=== PATIENT | male | born 1985 | race Caucasian/White ===

== ENCOUNTER → 2023-12-07 13:31 | Outpatient (REF) | payer MEDICARE, MEDICAID, SELFPAY | LOC: MRI 13:31 | PROVIDERS: ATTENDING PHYSICIAN Orthopaedic Surgery; FAMILY PHYSICIAN Physician Assistant | DX: M25.811 Other specified joint disorders, right shoulder (principal) | CPT/HCPCS: 23350; 73040; 73222 ==

== ENCOUNTER 2024-01-13 18:33 | Emergency (ER) | payer MEDICARE, MEDICAID, SELFPAY ==
[2024-01-13 18:36] VITALS: BMI 26.7
[2024-01-13 18:41] VITALS: BP 137/93
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
== END 2024-01-13 20:20 | disposition home or self-care (01) ==
LOC: EMR 18:33
PROVIDERS: EMERGENCY PHYSICIAN Emergency Medicine; FAMILY PHYSICIAN Physician Assistant
DX: M25.512 Pain in left shoulder (principal); W19.XXXA Unspecified fall, initial encounter; I38 Endocarditis, valve unspecified; F41.9 Anxiety disorder, unspecified; Z95.2 Presence of prosthetic heart valve; Z98.2 Presence of cerebrospinal fluid drainage device
CPT/HCPCS: 99283; 73030

== ENCOUNTER → 2024-07-04 15:43 | Outpatient (REF) | payer MEDICARE, MEDICAID, SELFPAY | LOC: RCS 15:43 | PROVIDERS: ATTENDING PHYSICIAN Internal Medicine Cardiovascular Disease; FAMILY PHYSICIAN Physician Assistant | DX: Z95.2 Presence of prosthetic heart valve (principal); I10 Essential (primary) hypertension | CPT/HCPCS: 93306 ==

== ENCOUNTER 2024-10-04 06:30 | Emergency (ER) | payer MEDICARE, MEDICAID, SELFPAY ==
[2024-10-04] VITALS (9 sets, daily range): BP systolic 115–140; BP diastolic 74–91
--- NOTE | 2024-10-04 07:13 | ED.GENMED ---
History of Present Illness
General
Chief Complaint: Chest Pain
Source: patient and care coordinator
Time Seen by Provider: 10/04/24 06:58
History of Present Illness
History of Present Illness:
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 Symptoms
began 2-3 days ago with URI symptoms and vomiting. He was seen at urgent care 2 days ago and was diagnosed with a viral illness. He seemed to be doing well yesterday and started having vomiting again last night. He has been complaining of chest
pain and 'not feeling right' so he was brought to the ED for evaluation. He denies any fevers, headache, abdominal pain, diarrhea. Of note, patient's medications have been changed recently. He was taken off of amitriptyline about 2 weeks ago. He
was started on baclofen and tramadol this week. He finished a course of prednisone 3 days ago which was prescribed by his pain management doctor.
Past History
Past History
ED Past Medical History: Valvular disease, Psychiatric (Anxiety) and Other (Hydrocephalies, MR)
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 Laryngotomy tubes)
Social History
Tobacco: Non-smoker
Alcohol: None
Personal: Single
Living: with family
Employment: Employed
Phy Exam
Physical Exam
Physical Exam:
Actively retching on exam
General Physical Exam
General Presentation: mild distress
General Skin: warm and dry
General Habitus: normal
General Mental: alert
ENT Exam
ENT Exam: normocephalic
Cardiovascular Exam
Cardiovascular Exam: regular rate/rhythm and other (Mechanical click)
Pulmonary Exam
Pulmonary Exam: lungs clear, no respiratory distress, no rales, no crackles, no rhonchi and other (Patient winces on palpation of the sternal region)
Gastrointestinal Exam
Gastrointestinal Exam: non tender, soft and non distended
Neurological Exam
Neurological Exam: alert
[place] Coma Scale
Eye Opening: Spontaneous
Verbal Response: Oriented
Motor Response: Obeys Commands
GCS Total Score: 15
Skin Exam
Skin Exam: normal color and warm/dry
Scores
Heart Score for Chest Pain Patients
STEMI patient?: No
History: Slightly or Non-Suspicious
ECG: Nonspecific Repolarization
Age: </= 45 years
Risk Factors: 1 or 2 Risk Factors
Troponin: </= Normal Limit
Heart Score for Chest Pain Patients: 2
Heart Score Risk: 2.5% MACE over next 6 weeks
Course
Orders/Labs/Results
Orders:
Orders
10/04/24 06:42
Electrocardiogram (*1) Urgent
Reason for Study: Other
Other Reason for Exam: Respiratory Distress
Cardiac Monitoring- Treatment ONCE
EKG- Treatment ONCE
IV Insert/Care/Rem.- Treatment PRN
CR Chest - 2 Views Urgent
Comment:
Reason For Exam: respiratory distress
O2 Therapy [RESP] Urgent
Titrate/Wean O2 to maintain O2 sat greater than (%): 93
Special Instructions: TO MAINTAIN CONTINUOUS O2 SATS >/= 93%
Pulse Ox/cont/shift [RESP] Urgent
Quantity: 1
Special Instructions: continuous pulse ox
10/04/24 07:11
Add On- LAB Urgent
Tests Added?: lipase
Cardiac Monitoring- Treatment ONCE
Ondansetron Injectable [Zofran] 4 mg IV NOW STA
10/04/24 07:12
0.9% Sodium Chloride 1000 ml [Nss] 1,000 ml IV BOLUS
10/04/24 07:18
Add On- LAB Urgent
Tests Added?: magnesium
10/04/24 07:19
COVID-19 Antigen Urgent
Source: Nasal Swab
Complete Blood Count/With Diff Urgent
Comprehensive Metabolic Panel Urgent
Lipase Urgent
Comment: ADD ON
Magnesium Urgent
Comment: ADD ON
NT-proBNP Urgent
Prothrombin Time Urgent
Troponin I Urgent
Influenza A+B Rapid Molecular Urgent
ANJELICA Source: Nasal Swab
Specimen Description:
10/04/24 08:18
Diphenhydramine [Benadryl] 25 mg IV NOW STA
Prochlorperazine [Compazine] 10 mg IV NOW STA
10/04/24 08:19
Famotidine [Pepcid] 20 mg IV NOW STA
10/04/24 08:22
CT Abd/pelvis W Iv Cont Urgent
Comment:
Reason For Exam: generalized abd pain, vomiting
10/04/24 10:19
Electrocardiogram (*1) Urgent
Reason for Study: Chest Pain
EKG- Treatment ONCE
10/04/24 10:36
Troponin I Urgent
10/04/24 10:39
Acetaminophen [Tylenol] 1,000 mg PO NOW STA
10/04/24 11:[address] Non Medication Order As Directed
Physician Order: PO challenge
Abnormal Lab Results
10/04/24
07:19
MPV 12.0 H fL
(7.4-10.4)
Absolute Lymphs (auto) 0.7 L 10^3/uL
(1.2-3.4)
Neutrophils % 78.9 H %
(42.2-75.2)
Lymphocytes % 10.4 L %
(20.5-51.1)
PT 20.8 H Sec
(11.4-14.6)
Glucose 122 H mg/dl
(70-99)
Total Bilirubin 1.7 H mg/dl
(0.2-1.3)
10/04/24 07:19
10/04/24 07:19
Vital Signs
Initial and Last Documented VS:
Initial Vital Signs
Temp Pulse Resp BP Pulse Ox
98.2 F 63 20 140/91 99
10/04/24 06:43 10/04/24 06:43 10/04/24 06:43 10/04/24 06:43 10/04/24 06:43
Last Documented Vital Signs
Temp Pulse Resp BP Pulse Ox
98.2 F 67 17 128/82 98
10/04/24 06:43 10/04/24 12:15 10/04/24 12:15 10/04/24 11:00 10/04/24 12:15
MDM/Problems Addressed
Differential Diagnosis Includes:
38yoM here with vomiting since last night. Also had vomiting a few days ago. C/o chest pain. Recently started on Tramadol and baclofen for chronic neck pain. Hx of mechanical heart valve on Coumadin. VSS. He is actively retching on exam. There is
reproducible chest wall tenderness. Differential diagnosis includes but is not limited to: Gastroenteritis, medication side effect, costochondritis, gastritis, dehydration, ACS
Initial plan: Check cardiac labs, INR, magnesium, EKG, viral testing, and chest x-ray. IV Zofran and fluid bolus.
*EKG
Interpreted by ED Provider?: Yes
EKG Intrepretation Date: 10/04/24
Heart Rate: 55
Rate: bradycardiac
Rhythm: sinus
[place]: normal axis
Interval: normal interval
QRS Pattern: normal QRS
Ischemia: non-specific ST changes
*Critical Care Note
Total Time (30-74mins, 75-104mins- exclusive of procedures): Not Applicable
Update Note
Update Note:
EKG shows sinus bradycardia with nonspecific ST/T wave changes. Troponin within normal limits. INR subtherapeutic at 1.77. Remainder of labs unremarkable including normal white count, electrolytes, and renal function. Chest x-ray clear. Patient
with persistent symptoms after Zofran and Compazine/Benadryl ordered. Patient feeling significantly proved after this and had no further episodes of vomiting. CT abdomen added which is negative for acute findings. Patient able to tolerate p.o.
fluids. Repeat EKG and troponin unchanged. Patient is stable for discharge. Suspect symptoms may be related to recent medication changes. Caregiver advised to discuss this with his PCP. Prescription given for Zofran and supportive care
reviewed. ED return precautions discussed. Caregiver and patient in agreement with plan and he was discharged in stable condition.
ED Attending Note
-
Portions of this chart may have been created with voice recognition software.� Occasional wrong word or��sound alike� substitutions may have occurred due to the inherent limitations of voice recognition software.
Discharge Plan
Departure
Patient Disposition: Home (Routine Discharge)
Date of Disposition: 10/04/24
Time of Disposition: 12:19
Patient with high blood pressure during this ER visit?: No
Discharge Problem:
Nausea and vomiting, Chest pain, Subtherapeutic international normalized ratio (INR)
Instructions: Nausea and vomiting in adults - ED discharge instructions
Prescriptions:
New
ondansetron 4 mg tablet,disintegrating
4 mg PO Q6H PRN (Reason: nausea and vomiting) Qty: 20 0RF
No Action
atenolol 25 MG tablet
25 mg PO QPM
warfarin 10 mg Tablet
13.5 mg PO QPM
alum-mag hydroxide-simeth 200-200-20 mg/5 mL Suspension
10 ml PO DAILYPRN PRN (Reason: gerd)
pantoprazole [Protonix] 40 mg tablet,delayed release (DR/EC)
40 mg PO DAILY Qty: 30 0RF
Referrals:
Mariposa Xie PA [Family Provider] -
Activity Restrictions/Additional Instructions:
Take Zofran as needed for nausea. Drink plenty of fluids and eat a bland diet (bananas, rice, applesauce, toast).
Please call your Coumadin clinic today as your INR was low at 1.77.
Please follow-up with your family doctor on Sunday. Return to the ER with any new or worsening symptoms.
Interventions
Interventions:
*Risk Screen - Suicide Last Done: 10/04/24 06:43
*General Assessment Last Done: 10/04/24 06:43
*Neglect/Abuse Screening Last Done: 10/04/24 06:43
*ED- Fall Risk Assessment Last Done: 10/04/24 06:43
*ED COVID-19 Vaccine History Last Done: 10/04/24 06:43
*Nursing Disposition Last Done: 10/04/24 12:41
ED- Cardiac Assessment Last Done: 10/04/24 07:51
Discharge Date and Time
Discharge Date/Time: 10/04/24 12:42
Print Language: PASHTO
[2024-10-04] MEDS: ZOFRAN 4 MG IV (07:20)
[2024-10-04] MEDS: NSS 1000 IV (07:21)
[2024-10-04 07:53] LABS: % Basophils 0.3 % (0-2); % Eosinophils 0.8 % (0-6); % Immature Granulocytes 0.5 % (0-0.5); % Lymphocytes 10.4 % (20.5-51.1); % Monocytes 9.1 % (1.7-9.3); % Neutrophils 78.9 % (42.2-75.2); Absolute Eosinophils 0.1 10^3/uL (0-0.7); Absolute Lymphocytes 0.7 10^3/uL (1.2-3.4); Absolute Monocytes 0.6 10^3/uL (0.1-0.6); Absolute Neutrophils 5.1 10^3/uL (1.4-6.5); Hematocrit 43.8 % (39.0-52.0); Hemoglobin 15.6 g/dL (13.0-18.0); Mean Corp Hgb Conc. 35.6 g/dL (33.0-37.0); Mean Corpuscular Hgb 28.9 pg (27.0-31.0); Mean Corpuscular Volume 81.3 fL (80.0-94.0); Nucleated Red Blood Cells % 0 % (-); Platelet Count 133 10^3/uL (130-400); Red Blood Cell Count 5.39 10^6/uL (4.70-6.10); Red Cell Dist. Width 14.5 % (11.5-14.5); White Blood Cell Count 6.5 10^3/uL (4.8-10.8)
[2024-10-04 07:57] LABS: ALT (SGPT) 34 U/L (0-50); AST (SGOT) 26 U/L (17-59); Albumin 4.7 g/dl (3.5-5.0); Alkaline Phosphatase 52 U/L (38-126); Blood Urea Nitrogen 17 mg/dl (9-20); Calcium 9.9 mg/dl (8.4-10.2); Carbon Dioxide 23 mmol/L (22-30); Chloride 102 mmol/L (98-107); Glucose 122 mg/dl (70-99); INR 1.77; PT 20.8 Sec (11.4-14.6); Potassium 4.4 mmol/L (3.5-5.1); Sodium 139 mmol/L (135-145); Total Bilirubin 1.7 mg/dl (0.2-1.3); Total Protein 7.2 g/dl (6.3-8.2); eGFR > 60.00
[2024-10-04 08:02] LABS: COVID-19 Antigen Negative (Negative)
[2024-10-04 08:09] LABS: NT-proBNP 146 pg/ml; Troponin I < 0.012 ng/ml
[2024-10-04] MEDS: COMPAZINE 10 MG IV (08:25)
[2024-10-04] MEDS: BENADRYL 25 MG IV (08:25)
[2024-10-04] MEDS: PEPCID 20 MG IV (08:26)
[2024-10-04 10:32] LABS: Lipase 92 U/L (23-300); Magnesium 1.8 mg/dl (1.6-2.3)
[2024-10-04] MEDS: TYLENOL 1000 MG PO (10:43)
[2024-10-04 11:13] LABS: Troponin I < 0.012 ng/ml
== END 2024-10-04 12:42 | disposition home or self-care (01) ==
LOC: EMR 06:30
PROVIDERS: Physician Assistant; EMERGENCY PHYSICIAN Emergency Medicine; FAMILY PHYSICIAN Physician Assistant
DX: R11.2 Nausea with vomiting, unspecified (principal); R07.89 Other chest pain; R79.1 Abnormal coagulation profile; G89.29 Other chronic pain; Z95.4 Presence of other heart-valve replacement; Z79.01 Long term (current) use of anticoagulants; Z98.2 Presence of cerebrospinal fluid drainage device; F79 Unspecified intellectual disabilities; Z11.52 Encounter for screening for COVID-19
CPT/HCPCS: 96374; 96375; 96361; 99284; 71046; 74177; 80053; 83690; 83735; 83880; 84484; 85025; 85610; 87502; 87811; 93005; Q9967

== ENCOUNTER → 2024-11-14 06:39 | Outpatient (REF) | payer MEDICARE, MEDICAID, SELFPAY | LOC: MRI 3T 06:39 | PROVIDERS: ATTENDING PHYSICIAN Specialist; FAMILY PHYSICIAN Physician Assistant | DX: M54.12 Radiculopathy, cervical region (principal) | CPT/HCPCS: 72141 ==

== ENCOUNTER 2024-12-17 10:12 | Emergency (ER) | payer MEDICARE, MEDICAID, SELFPAY ==
[2024-12-17 10:19] VITALS: BP 139/96
[2024-12-17 10:42] VITALS: BP 156/99
[2024-12-17 10:47] VITALS: BMI 27.7
[2024-12-17 11:02] VITALS: BP 134/94
[2024-12-17] MEDS: PROTONIX IV 40 MG IV (11:07)
[2024-12-17] MEDS: NSS 500 IV (11:07)
[2024-12-17] MEDS: ZOFRAN 4 MG IV (11:07)
[2024-12-17 11:17] LABS: Hematocrit 40.1 % (39.0-52.0); Hemoglobin 14.0 g/dL (13.0-18.0); Mean Corp Hgb Conc. 34.9 g/dL (33.0-37.0); Mean Corpuscular Volume 82.0 fL (80.0-94.0); Nucleated Red Blood Cells % 0 % (-); Platelet Count 137 10^3/uL (130-400); Red Cell Dist. Width 14.0 % (11.5-14.5)
[2024-12-17 11:26] LABS: INR 3.75; PT 37.3 Sec (11.4-14.6)
--- NOTE | 2024-12-17 11:29 | ED.GENMED ---
History of Present Illness
General
Chief Complaint: Chest Pain
Source: patient, records and healthcare corporate account director
Exam Limitations: developmental stage
Time Seen by Provider: 12/17/24 10:43
Nursing documentation reviewed up to this point in time: agreed with
History of Present Illness
History of Present Illness:
39-year-old male special-needs adult status post aortic root surgery in 2011 by Gerson Vlea on warfarin and beta-kwadwo presents with upper chest pain after vomiting, no fevers no abdominal pain, caregiver states he was at camp last week
believes he was on a different diet than usual possibly took his Coumadin irregularly, but also has a nodule or similar sounding issue with his chest he is scheduled for follow-up regularly with his outpatient physicians
Past History
Past History
ED Past Medical History: Valvular disease, Psychiatric (Anxiety) and Other (Hydrocephalies, MR)
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 Laryngotomy tubes)
Social History
Tobacco: Non-smoker
Alcohol: None
Drug: None
Personal: Single
Living: with family
Employment: Employed
Review of Systems
Review of Systems
All Other Systems: Not applicable
Constitutional: Denies fever or fatigue
Respiratory: Denies trouble breathing
Cardiac: Reports chest pain
ABD/GI: Reports nausea and vomiting
: Reports no symptoms
Musculoskeletal: Reports no symptoms
Neurological: Reports no symptoms
Endocrine: Reports no symptoms
Phy Exam
Physical Exam
Physical Exam:
Physical Exam
General: Special-needs male cooperative
Neck: No jaundice
Heart: s1/s2 regular rate and rhythm, no murmur. equal radial pulses.
Lungs: no acute respiratory distress. clear bilaterally
Abdomen: Nontender
Neuro: alert and oriented. no focal neurological deficits
Skin: no rash
Psychiatric: Flat affect cooperative
Extremities: no edema. no calf tenderness.
Scores
Heart Score for Chest Pain Patients
STEMI patient?: No
History: Slightly or Non-Suspicious
ECG: Normal
Age: </= 45 years
Risk Factors: 1 or 2 Risk Factors
Troponin: </= Normal Limit
Heart Score for Chest Pain Patients: 1
Heart Score Risk: 2.5% MACE over next 6 weeks
Course
Orders/Labs/Results
Orders:
Orders
12/17/24 10:13
EKG [Electrocardiogram (*1)] Urgent
Reason for Study: Abnormal EKG
EKG- Treatment ONCE
12/17/24 11:00
0.9% Sodium Chloride 500 ml [Nss] 500 ml IV BOLUS
Ondansetron Injectable [Zofran] 4 mg IV NOW STA
Pantoprazole [Protonix IV] 40 mg IV NOW STA
12/17/24 11:01
Complete Blood Count/With Diff Urgent
Comprehensive Metabolic Panel Urgent
PT/INR [Prothrombin Time] Urgent
Troponin I Urgent
CR Chest - 2 Views Urgent
Comment:
Reason For Exam: cp, avr
12/17/24 12:12
Mag Hydrox/Al Hydrox/Simeth [Maalox] 30 ml PO NOW STA
Phenobarb/Hyoscy/Atropine/Scop [] 10 ml PO NOW STA
Abnormal Lab Results
12/17/24
11:01
MPV 10.5 H fL
(7.4-10.4)
Absolute Lymphs (auto) 0.5 L 10^3/uL
(1.2-3.4)
Neutrophils % 79.3 H %
(42.2-75.2)
Lymphocytes % 11.2 L %
(20.5-51.1)
PT 37.3 H Sec
(11.4-14.6)
Chloride 109 H mmol/L
(98-107)
Glucose 117 H mg/dl
(70-99)
12/17/24 11:01
12/17/24 11:01
Vital Signs
Initial and Last Documented VS:
Initial Vital Signs
Temp Pulse Resp BP Pulse Ox
98.2 F 68 16 139/96 98
12/17/24 10:19 12/17/24 10:19 12/17/24 10:19 12/17/24 10:19 12/17/24 10:19
Last Documented Vital Signs
Temp Pulse Resp BP Pulse Ox
98.2 F 70 15 138/87 100
12/17/24 10:19 12/17/24 12:32 12/17/24 12:32 12/17/24 12:32 12/17/24 12:32
MDM/Problems Addressed
Differential Diagnosis Includes:
Gastritis pancreatitis aspiration
MDM/Problems Addressed:
Chest pain shortness of breath nausea vomiting
Chronic conditions affecting care:
Cardiac surgery on warfarin
Acute Exacerbation and/or Progression of Chronic Illness:
Cardiac surgery warfarin
*Radiology
Radiology exam reviewed: preliminary read by ED provider
*Pulse Oximetry
SaO2: 100
Oxygen Mode of Delivery: Room air
Patient hypoxic: no
*EKG
Interpreted by ED Provider?: Yes
Interpretation: abnormal
Comparison EKG: no comparison EKG present
Heart Rate: 78
Rate: normal
Rhythm: sinus
Ischemia: non-specific ST changes
*Quality Technician [employer] Interpretation
Rate: normal
Interpretation: normal
Heart Rate: 78
Rhythm: sinus
*Critical Care Note
Total Time (30-74mins, 75-104mins- exclusive of procedures): Not Applicable
Data Reviewed
Review of Other/Old Records Reveals: Operative Reports
Source: patient and healthcare corporate account director
Further Testing Considered But Not Given:
CT chest
Update Note
Update Note:
1230, update labs and chest x-ray noted patient still with some mild symptoms we will try GI cocktail
ED Attending Note
-
Portions of this chart may have been created with voice recognition software.� Occasional wrong word or��sound alike� substitutions may have occurred due to the inherent limitations of voice recognition software.
Discharge Plan
Departure
Patient Disposition: Home (Routine Discharge)
Date of Disposition: 12/17/24
Time of Disposition: 13:13
Patient with high blood pressure during this ER visit?: No
Condition: Good
Discharge Problem:
Chest pain, Vomiting
Instructions: Acid Reflux and GERD in Adults (DC), Chest Pain PCP Follow Up
Prescriptions:
New
ondansetron 4 mg tablet,disintegrating
4 mg PO Q8H PRN (Reason: nausea and vomiting) Qty: 20 0RF
pantoprazole [Protonix] 40 mg tablet,delayed release (DR/EC)
40 mg PO DAILY Qty: 30 0RF
No Action
atenolol 25 MG tablet
25 mg PO QPM
warfarin 10 mg Tablet
12 mg PO QPM
pantoprazole [Protonix] 40 mg tablet,delayed release (DR/EC)
40 mg PO DAILY Qty: 30 0RF
ondansetron 4 mg tablet,disintegrating
4 mg PO Q6H PRN (Reason: nausea and vomiting) Qty: 20 0RF
Referrals:
Mariposa Xie PA [Family Provider, Family Practice] - Follow up in 2-3 days
Interventions
Interventions:
*Risk Screen - Suicide Last Done: 12/17/24 10:19
*General Assessment Last Done: 12/17/24 10:49
*Neglect/Abuse Screening Last Done: 12/17/24 10:19
*ED- Fall Risk Assessment Last Done: 12/17/24 10:49
*ED COVID-19 Vaccine History Last Done: 12/17/24 10:48
ED- Cardiac Assessment Last Done: 12/17/24 10:45
Discharge Date and Time
Print Language: GUATEMALAN
[2024-12-17 11:53] LABS: Troponin I < 0.012 ng/ml
[2024-12-17 11:55] LABS: ALT (SGPT) 34 U/L (0-50); AST (SGOT) 25 U/L (17-59); Albumin 4.5 g/dl (3.5-5.0); Alkaline Phosphatase 46 U/L (38-126); Blood Urea Nitrogen 14 mg/dl (9-20); Calcium 9.4 mg/dl (8.4-10.2); Carbon Dioxide 28 mmol/L (22-30); Chloride 109 mmol/L (98-107); Estimated Creatinine Clearance 114 ml/min; Glucose 117 mg/dl (70-99); Potassium 4.1 mmol/L (3.5-5.1); Sodium 141 mmol/L (135-145); Total Protein 6.9 g/dl (6.3-8.2); eGFR > 60.00
[2024-12-17] MEDS: DONNATAL 10 ML PO (12:29)
[2024-12-17] MEDS: MAALOX 30 ML PO (12:29)
[2024-12-17 12:32] VITALS: BP 138/87
[2024-12-17 13:00] VITALS: BP 135/83
== END 2024-12-17 13:49 | disposition home or self-care (01) ==
LOC: EMR 10:12
PROVIDERS: EMERGENCY PHYSICIAN Emergency Medicine; FAMILY PHYSICIAN Physician Assistant
DX: R07.89 Other chest pain (principal); R11.2 Nausea with vomiting, unspecified; Z79.01 Long term (current) use of anticoagulants; Z95.2 Presence of prosthetic heart valve; Z98.2 Presence of cerebrospinal fluid drainage device; I38 Endocarditis, valve unspecified; F41.9 Anxiety disorder, unspecified
CPT/HCPCS: 99283; 96374; 96375; 96361; 71046; 80053; 84484; 85025; 85610; 93005